=== PATIENT | male | born 1965 | race Caucasian/White ===

== ENCOUNTER → 2020-11-14 10:30 | Outpatient (BNVA) | payer MEDICARE, MEDICAID, SELFPAY | PROVIDERS: PCP Nurse Practitioner Family; Visit Provider Nurse Practitioner | DX: Z13.89 Encounter for screening for other disorder (principal) | CPT/HCPCS: 99212 ==

== ENCOUNTER 2021-05-15 19:01 | Emergency (ER) | payer MEDICARE, MEDICAID, SELFPAY ==
--- NOTE | ~2021-05-15 | XR_ITS ---
EXAMINATION: XR SHOULDER, RIGHT CLINICAL INFORMATION: Right shoulder pain status post fall COMPARISON: None TECHNIQUE: Three views of the right shoulder. FINDINGS: There is a fracture of the humeral neck with impaction and varus angulation of the distal fracture fragment. The glenohumeral joint appears intact although slightly widened possibly secondary to hemarthrosis. No other acute fractures are seen. Old healed right rib fractures are present. XR/XR shoulder RT min 2V IMPRESSION: Acute fracture right humeral neck.
[2021-05-15 19:12] VITALS: BP 150/65; PULSE 85; RESP 20; TEMP 36.9; O2SAT 97; BMI 23.5
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
[2021-05-15] MEDS: Morphine Sulfate 4 MG/ML CARTRIDGE IM (21:18)
[2021-05-15] MEDS: Acetaminophen 325 MG TABLET 975 MG PO (21:19)
[2021-05-15 21:22] VITALS: BP 150/86; PULSE 92; RESP 17; TEMP 36.8; O2SAT 98
[2021-05-15] MEDS: Bacitracin Oint 0.9 GM PACKET 1 APPL TOPICAL (21:27)
== END 2021-05-15 21:59 | disposition home or self-care (01) ==
PROVIDERS: Emergency Provider Emergency Medicine Emergency Medical Services; PCP Family Medicine
DX: S42.211A Unspecified displaced fracture of surgical neck of right humerus, initial encounter for closed fracture (principal); S00.81XA Abrasion of other part of head, initial encounter; S80.211A Abrasion, right knee, initial encounter; V18.0XXA Pedal cycle driver injured in noncollision transport accident in nontraffic accident, initial encounter; Y93.55 Activity, bike riding; Y92.414 Local residential or business street as the place of occurrence of the external cause; Y99.9 Unspecified external cause status
CPT/HCPCS: 73030; 96372; 99284; J2270

== ENCOUNTER → 2021-05-17 14:21 | Outpatient (BNVA) | payer MEDICARE, MEDICAID, SELFPAY | PROVIDERS: Visit Provider Physician Assistant | DX: S42.201A Unspecified fracture of upper end of right humerus, initial encounter for closed fracture (principal) | CPT/HCPCS: 99202 ==

== ENCOUNTER 2021-06-14 09:13 | Outpatient (REF) | payer MEDICARE, MEDICAID, SELFPAY ==
--- NOTE | ~2021-06-14 | XR_ITS ---
EXAMINATION: XR SHOULDER, RIGHT CLINICAL INFORMATION: Right shoulder pain. COMPARISON: 05/15/2021 TECHNIQUE: Two views of the right shoulder. FINDINGS: There is again noted to be an essentially nondisplaced but angulated fracture of the surgical neck of the right proximal humerus. There is no change in alignment. There has been some periosteal new bone formation and increased sclerosis about the fracture site. No dislocation. XR/XR shoulder RT min 2V IMPRESSION: No change in alignment with evidence of some healing involving the right proximal humeral fracture.
== END 2021-06-14 09:14 | disposition home or self-care (01) ==
LOC: HO.HOSX 09:13
PROVIDERS: Visit Provider Physician Assistant
DX: S42.201D Unspecified fracture of upper end of right humerus, subsequent encounter for fracture with routine healing (principal)
CPT/HCPCS: 73030; 99212

== ENCOUNTER 2021-07-26 07:30 | Outpatient (REF) | payer MEDICARE, MEDICAID, SELFPAY ==
--- NOTE | ~2021-07-26 | XR_ITS ---
EXAMINATION: XR SHOULDER, RIGHT CLINICAL INFORMATION: Right shoulder pain COMPARISON: 05/15/2021 and 06/14/2021 TECHNIQUE: Two views of the right shoulder. FINDINGS: Again noted is a mildly impacted, transverse fracture through the region of the surgical neck of the humerus. There is no visible fracture lucency centrally, either from the impaction or partial healing. Persistent fracture lucency is observed in cortical bone medially and laterally. There is mild anterosuperolateral displacement of the humeral shaft fragment and mild anterolateral fracture apex angulation, unchanged. The humeral head remains well-positioned over the glenoid. The glenohumeral joint space is maintained. The right clavicle and acromioclavicular joint are unremarkable. No calcium deposition within rotator cuff tendons. The visualized right lung is normal. XR/XR shoulder RT min 2V IMPRESSION: There appears to be a healing, impacted fracture of the surgical neck of the humerus. The bone fragments are in stable position compared to 05/15/2021.
== END 2021-07-26 07:31 | disposition home or self-care (01) ==
LOC: HO.HOSX 07:30
PROVIDERS: Visit Provider Physician Assistant
DX: S42.201D Unspecified fracture of upper end of right humerus, subsequent encounter for fracture with routine healing (principal)
CPT/HCPCS: 73030; 99212

== ENCOUNTER 2021-09-04 10:00 | Outpatient (RCR) | payer MEDICARE, MEDICAID, SELFPAY ==
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
--- NOTE | 2021-09-13 09:13 | MHC.PT.DC ---
[facility] [place] Office [place] Office [place] Office [address] Nasra Lilly [address] [phone] F: [phone] F: [phone] F: [phone] F: [phone] Physical Therapy Discharge Report Diagnosis: FX PROX RIGHT HUMERUS Date of Surgery: Date of Evaluation: 08/07/21 Date of Discharge: 09/13/21 Treatments to Date: 8 Cancellations to Date: 0 No Shows to Date: 2 Discharge Status: Improved Function Independent with HEP Patient Elected to Stop Discharge Summary: Pt DENIES Rt SH / HUMERAL PAIN, HE NOTES HE HAS BEEN ABLE TO RESUME REG ADLS, WITH SOME DIFFICULTY W OVERHEAD TASKS- HE IS INDEP AND COMPLIANT W HEP TO ADDRESS PROGRESSIVE STRENGTHENING- Pt HAD ORTHO F/U AND DISCHARGED HIMSELF FROM PT AT THIS TIME Electronically signed by: Twila Peres,PT Please sign and return to therapist. Thank you for your referral.
== END 2021-09-13 09:13 | disposition home or self-care (01) ==
LOC: HO.PT 10:00
PROVIDERS: Visit Provider Physician Assistant
DX: S42.201D Unspecified fracture of upper end of right humerus, subsequent encounter for fracture with routine healing (principal)
CPT/HCPCS: 97110; 97140; 97162

== ENCOUNTER 2021-09-11 12:30 | Outpatient (REF) | payer MEDICARE, MEDICAID, SELFPAY ==
--- NOTE | ~2021-09-11 | XR_ITS ---
EXAMINATION: XR SHOULDER, RIGHT CLINICAL INFORMATION: Pain in right shoulder COMPARISON: Right shoulder 07/26/2021. 06/14/2021, 05/15/2021 TECHNIQUE: Four views of the right shoulder. FINDINGS: Healed fracture of the proximal shaft of the humerus with residual deformity at the humeral neck. There is no acute fracture. No dislocation. No focal bone lesion or abnormal periosteal reaction. The glenohumeral joint is normal. The acromioclavicular joint is normal. There is no soft tissue calcification. XR/XR shoulder RT min 2V IMPRESSION: Healed fracture proximal humerus with residual deformity. No acute abnormality of the shoulder.
== END 2021-09-11 12:31 | disposition home or self-care (01) ==
LOC: HO.HOSX 12:30
PROVIDERS: Visit Provider Physician Assistant
DX: S42.201D Unspecified fracture of upper end of right humerus, subsequent encounter for fracture with routine healing (principal)
CPT/HCPCS: 73030; 99212

== ENCOUNTER → 2022-01-14 11:12 | Outpatient (REF) | payer MEDICARE, MEDICAID, SELFPAY ==
--- NOTE | 2022-01-14 11:16 | CA_ITS ---
Transthoracic Echocardiogram Patient (Last, First, Middle): Surinder Ahn, Gender: Male Date of : 1965 Age: 56 Procedure Date: 01/14/2022 Procedure Type: Transthoracic Echocardiogram Location: OP Height: 152.4 cm Weight: 49.02 kg BSA: 1.44 m2 Heart Rate: bpm BP: 138 / 82 mmHg New Car Inspector: GHANSHYAM Referring MD: Tatianna Montero Cell Biology Scientist: Vijay Brownlee MD Symptoms: I34.9 NON RHEU MITRAL VALVE DISORDER Study Quality: Fair ECG Rhythm: Sinus Conclusions: - 1. Low normal LV ejection fraction 50-55% with impaired relaxation filling pattern 2. Mild aortic stenosis and mild aortic regurgitation 3. Thickened mitral valve without significant stenosis 4. No gross pericardial effusion Findings Left Ventricle Normal left ventricular cavity size. There is normal left ventricular wall thickness. The left ventricular systolic function is low normal. The visually estimated ejection fraction is between 50-55%. Spectral Doppler is indicative of an impaired relaxation filling pattern. E/E prime ratio is between 8 and 15 consistent with indeterminate filling pressures. Right Ventricle Normal right ventricular cavity size and systolic function. Atria The left atrium is normal in size. There is no evidence of interatrial shunt. The right atrium is normal in size. Aortic Valve There is mild calcification of the aortic valve. There is mild aortic valve stenosis. The peak aortic velocity is 2.06 m/s with a calculated peak gradient of 17 mmHg. The aortic valve area is 1.90 cm2. There is mild aortic valve regurgitation. Mitral Valve There is mild anterior and moderate posterior mitral leaflet thickening. There is mild mitral annular calcification. There is trace mitral valve regurgitation. There is no mitral valve stenosis. Pulmonic Valve The pulmonic valve was not well visualized. Tricuspid Valve Likely normal tricuspid valve structure and function. Tricuspid regurgitation envelope is inadequate for calculation of right ventricular systolic pressure. Great Vessels All visible segments of the aorta are normal in size. The pulmonary artery was not well visualized. Venous The inferior vena cava is normal in size. Pericardium/Pleural There is no evidence of pericardial effusion. Prior Study Comparison No significant change compared to prior study dated: 12/28/2017. Measurements M-Mode Liner Measurements Normals - Women/Men LVIDd: 4.96 3.9-5.3/4.2-5.9 cm LVIDd Index: 3.44 1.9-3.2 cm/m2 LVIDs: 3.62 2.0-3.8 cm M-Mode Volumes LV EDV: 116.00 LV ESV: 55.20 2D Linear Measurements IVSd: 1.16 0.6-0.9/0.6-1.0 cm LVIDd: 5.11 3.9-5.3/4.2-5.9 cm LVIDd Index: 3.55 2.4-3.2/2.2-3.1 cm/m2 LVIDs: 3.78 2.0-3.6 cm LVPWd: 0.97 0.7-1.1 cm LA Diam: 3.10 2.7-3.8/3.0-4.0 cm LAIDs Index: 2.15 1.5-2.3 cm/m2 LV Mass: 255.75 67-162/88-224 g LV Mass Index: 177.60 43-95/49-115 g/m2 LVOT Diam: 1.90 3.0+(-)1.3 cm 2D Systolic Function EF 4C: 52.50 >55% M-Mode Systolic Function FS: 27.00 27-47/25-43% LVEF: 52.40 >55% Mitral Valve MV Pk E: 1.06 MV PK A: 1.47 MV Decel Time: 161.00 E/A: 0.70 E'Lateral: 6.53 E'Medial: 4.57 E/E' Med: 23.20 E/E' Lat: 16.20 PHT: 47.00 MVA PHT: 4.68 Decel [place]: 6.61 Aortic Valve AoV Pk Jeremy: 2.06 AoV Pk Grad: 17.00 BAILEY Cont.VTI: 1.90 AI Pk Jeremy: 3.31 AI [place]: 1.75 LVOT LVOT Pk Jeremy: 1.18 LVOT Mn Jeremy: 1.00 LVOT VTI: 0.29 LVOT Pk Grad: 6.00 LVOT Mn Grad: 4.00 LVOT Diam: 1.90 LVOT Area: 2.84 Diastolic Function MV Pk E: 1.06 MV Pk A: 1.47 E/A: 0.70 E'Medial: 4.57 E/E' Med: 23.20 E' Laterial: 6.53 E/E' Lat: 16.20 Right Ventricle TAPSE (mm): 2.17 TVS' Jeremy: 12.90 Tricuspid Valve RA Press: 3.00 Great Vessels Aorta Sinus of Valsalva: 3.54 2.0-3.5 cm Ao Asc: 3.70 2.1-3.4 cm Ao Arch: 3.20 Updated in Other Vendor System with Status of Final Vijay Brownlee MD electronically signed on 01/14/2022 6:08:54 PM with status of Final
== END ==
LOC: HO.CARD 11:12
PROVIDERS: PCP Nurse Practitioner Family; Visit Provider Nurse Practitioner Family
DX: I34.9 Nonrheumatic mitral valve disorder, unspecified (principal)
CPT/HCPCS: 93306

== ENCOUNTER 2023-11-04 13:35 | Outpatient (REF) | payer MEDICARE, MEDICAID, SELFPAY | END 2023-11-04 13:36 | disposition home or self-care (01) | LOC: HO.HHCLNP 13:35 | PROVIDERS: Visit Provider Registered Nurse | DX: R39.9 Unspecified symptoms and signs involving the genitourinary system (principal) | CPT/HCPCS: 87086 ==

== ENCOUNTER 2023-11-18 10:41 | Outpatient (AMB) | payer MEDICARE, MEDICAID, SELFPAY ==
--- NOTE | 2023-11-18 10:53 | MHC.OFFVIS ---
Intake Vital Signs 11/18/23 11:06 Weight 130 lb BP 127/76 Blood Pressure Location Rt brachial Position Sitting Pulse 107 H Intake Visit Reasons: recall colonoscopy screening Intake Note: This patient presents for a recall colonoscopy screening. Pt c/o; reports hemorrhoids, reports constipation, reports abdominal and back pain when constipated. 02/08/2014 colonoscopy Senior Communications Specialist Required: Yes Senior Communications Specialist Language: French Cord Binder Name: Caryn Information Interpreted: non-clinical & clinical Accompanied by: Self / Same As Patient Allergies No Known Allergies Allergy (Mild, Verified 11/18/23 11:08) NKA Medication List - Last Reconciled 11/18/23 by Seferino Shah MD aspirin 1 tab PO DAILY atorvastatin 1 tab PO DAILY cyanocobalamin (vitamin B-12) (Vitamin B-12) 1,000 mcg PO DAILY fenofibrate micronized 1 cap PO DAILY ferrous gluconate 1 tab PO DAILY fluticasone propionate 50 mcg/actuation 1 spray intranasal DAILY hydrocortisone 2.5% 1 appl CO TID levothyroxine 1 tab PO DAILY loratadine 1 tab PO DAILY HPI recall colonoscopy screening HPI Details 58-year-old male referred for screening colonoscopy. Review of his records show that his last colonoscopy was in 2013. This was unremarkable at that time. He denies GI complaints. He denies a strong family history of colon cancer. [facility] Medical History (Updated 11/18/23 @ 11:10 by Seferino Shah MD) Colon cancer screening Anemia Hyperlipemia Surgical History Hx of knee surgery Hx of removal of cyst Hx of eye surgery Hx of cholecystectomy Hx of endoscopy Hx of colonoscopy Family History Father Throat cancer Mother Alcoholism Maternal Grandmother Bone cancer Sister Diabetes Brother Diabetes Family/Other Family history of diabetes mellitus Social History Household Members: Family Household Members Other:: sister Housing: House Alcohol intake: former Patient Tobacco Use Status: Never used Tobacco service: No Current occupational status: disabled Current occupation: lt handed Review of Systems Const Denies chills and Denies fever(s) Card Denies chest pain, Denies dyspnea and Denies dyspnea on exertion Resp Denies cough, Denies dyspnea and Denies dyspnea on exertion GI Denies hematochezia, Denies change in bowel habits and Reports constipation Denies hematuria and Denies difficulty urinating Musc Denies back pain and Denies limited range of motion Neuro Denies focal weakness and Denies convulsions Psych Denies depression and Denies mood swings Physical Exam Vital Signs: Last Vital Signs Pulse 107 H 11/18/23 11:06 BP 127/76 11/18/23 11:06 Const General: comfortable and no acute distress Orientation/consciousness: patient oriented x3 Neck Neck: Yes no lymphadenopathy Resp Auscultation: clear to auscultation bilaterally Cardio Rhythm: regular rhythm GI Palpation (GI): Soft to palpation, nontender and no guarding Neuro General: patient oriented x3 Assessment & Plan Assessment & Plan (1) Colon cancer screening: Comment: 2013 normal scope - Pablo Code(s): Z12.11 - Encounter for screening for malignant neoplasm of colon Plan: I reviewed with him the technique of colonoscopy for screening. I discussed the risks including but not limited to bleeding and perforation, as well as the benefits and alternatives. He understands and agrees to proceed. Coding Level of Care Code New Pt Level 3 (04587) Diagnoses Colon cancer screening Z12.11
[2023-11-18 11:06] VITALS: BP 127/76; PULSE 107
== END 2023-11-18 11:17 | disposition home or self-care (01) ==
PROVIDERS: PCP Nurse Practitioner Family; Visit Provider Surgery
DX: Z12.11 Encounter for screening for malignant neoplasm of colon (principal)
CPT/HCPCS: 99203

== ENCOUNTER → 2023-11-18 10:41 | Outpatient (BNVA) | payer MEDICARE, MEDICAID, SELFPAY | PROVIDERS: PCP Nurse Practitioner Family; Visit Provider Surgery | DX: Z12.11 Encounter for screening for malignant neoplasm of colon (principal) | CPT/HCPCS: 99202 ==

== ENCOUNTER 2023-11-20 09:06 | Outpatient (REF) | payer MEDICARE, MEDICAID, SELFPAY ==
[2023-11-20 12:26] LABS: TSH reflex Free T4 3.71 uIU/mL (0.32-4.0)
== END 2023-11-20 09:07 | disposition home or self-care (01) ==
LOC: HO.HHCL 09:06
PROVIDERS: Visit Provider Registered Nurse
DX: Z12.5 Encounter for screening for malignant neoplasm of prostate (principal); R39.9 Unspecified symptoms and signs involving the genitourinary system; R35.0 Frequency of micturition; E03.9 Hypothyroidism, unspecified
CPT/HCPCS: 36415; 84153; 84443; 87086

== ENCOUNTER 2023-12-22 05:48 | Day surgery (SDC) | payer MEDICARE, MEDICAID, SELFPAY ==
[2023-12-18 16:26] VITALS: BMI 23.2
[2023-12-22 06:58] VITALS: BP 154/72; PULSE 88; RESP 16; TEMP 37; O2SAT 97; BMI 22.7
--- NOTE | 2023-12-22 07:11 | P.CONAN_ITS ---
HPI - Anesthesia Eval Consult details Narrative: Screening Colonoscopy [facility] Active Problems Active Problems: All Active Problems (Updated 12/18/23 @ 16:29 by Maribel Gramajo RN) Fracture of proximal end of right humerus with routine healing (Acute) Anemia (Chronic) Closed fracture of right proximal humerus (Acute) Family history of colonic polyps (Acute) Hemorrhoids (Acute) Constipation (Acute) Colon cancer screening (Acute) Past Medical History Medical History Hypothyroidism Allergic rhinitis Constipation Mitral valve disorder Anemia Hyperlipemia Colon cancer screening Family History Family History Father Throat cancer Mother Alcoholism Maternal Grandmother Bone cancer Sister Diabetes Brother Diabetes Family/Other Family history of diabetes mellitus Family history of problems with anesthesia: No Surgical History Surgical History Hx of knee surgery Hx of removal of cyst Hx of eye surgery Hx of cholecystectomy Hx of endoscopy Hx of colonoscopy History of Problems with Anesthesia: No Social History Social History Household Members: Family Household Members Other:: sister Housing: House Alcohol intake: former Patient Tobacco Use Status: Never used Tobacco Use of substances other than those prescribed or required for medical reasons: No Are you DNR?: No Advance Directives: No Advance Directives Information Provided: Yes service: No Current occupational status: disabled Current occupation: lt handed Meds Allergies Allergy/AdvReac Type Severity Reaction Status Date / Time No Known Allergies Allergy Mild NKA Verified 12/22/23 06:53 Home Medications Medication Instructions Recorded Confirmed Last Taken Type aspirin 81 mg tablet,delayed 1 tab PO DAILY 06/06/21 12/22/23 12/20/23 History release atorvastatin 20 mg tablet 1 tab PO DAILY 06/06/21 12/22/23 Unknown History ferrous gluconate 324 mg (37.5 mg 1 tab PO DAILY 06/06/21 12/22/23 12/20/23 History iron) tablet fenofibrate micronized 200 mg 1 cap PO DAILY 08/06/21 12/22/23 Unknown History capsule fluticasone propionate 50 1 spray intranasal DAILY 08/06/21 12/22/23 Unknown History mcg/actuation nasal spray,suspension levothyroxine 88 mcg tablet 1 tab PO DAILY 08/06/21 12/22/23 Unknown History loratadine 10 mg tablet 1 tab PO DAILY 08/06/21 12/22/23 Unknown History Exam Height,Weight and Vital Signs: Height 5 ft 3 in Weight 58.06 kg Last Vital Signs Temp 98.6 F 12/22/23 06:58 Pulse 88 12/22/23 06:58 Resp 16 12/22/23 06:58 BP 154/72 H 12/22/23 06:58 Pulse Ox 97 12/22/23 06:58 O2 Del Method Room Air 12/22/23 06:58 Airway Mallampati Class: II TM Dist: >3cm Neck ROM: Full Loose/Missing/Broken Teeth: Yes (many missing upper and lower globally) Heart: [id number]+[id number] Lungs: cta b/l Assessment and Plan Assessment Anesthesia Assessment: Anesthesia Plan Discussed, Smoking Cess. Discussed and Chart Reviewed Final Anesthetic Review Family History of Problems with Anesthesia: No History of Problems with Anesthesia: No NPO: Yes ASA Class: II Final Preanesthetic Review: No Changes in Pt Med Stat, Meds/Allgs Chart Reviewed, Consent Obtained/Reviewed and Anes Risks/Benef Reviewed Patient Risk: Intermediate Procedure Risk: Low Assessment/Block/Sedation in SS: Assess/Block/Sedation-SS Anesthetic Plan Anesthetic Plan: MAC: Disposition: Standard PACU
--- NOTE | 2023-12-22 07:25 | MHC.SHP ---
Pre-Procedural Eval Section A - 24 Hr Update-Section A only Date of Service: 12/22/23 The patient is an INPATIENT: No Changes since office visit: Yes Cold of Flu in the past 2 weeks, Yes New Medical Problems, Yes Changes in Medication and Yes Patient answered all questions The patient has been examined within 24 hours of the surgical procedure. The History & Physical has been completed within 30 days and I have reviewed it.: Yes Section B - Complete if H&P > 30 days Chief Complaint: screening Allergies: Allergies Allergy/AdvReac Type Severity Reaction Status Date / Time No Known Allergies Allergy Mild NKA Verified 12/22/23 06:53 Plan I have reviewed the history and physical and performed a pertinent physical examination on my patient. No changes have occurred unless specified. Time Spent With Patient Time: Total time managing care of this patient today ____ minutes.
[2023-12-22 08:00] VITALS: BP 105/62; PULSE 90; RESP 16; TEMP 37.2; O2SAT 99
--- NOTE | 2023-12-22 08:00 | W.PM.OPN ---
Operative Note Operative Note Date of Service: 12/22/23 Narrative: Preop diagnosis: Colon cancer screening Postop diagnosis: Normal colonoscopy findings Procedure: Colonoscopy Surgeon: Seferino Shah MD The patient is a 58-year-old male here for screening colonoscopy. He understood the technique of the procedure as well as the risks, benefits, and alternatives. The patient was brought to the operating room and placed in left lateral decubitus position under monitored anesthesia care. A surgical time-out was done. A full digital rectal exam was done and this did not reveal any significant anal lesions except for prominent hemorrhoids. The tip of the Olympus colonoscope was gently introduced through the anal orifice advanced with insufflation all the way to the cecum. The cecum was intubated. The cecum was identified by visualization of the ileocecal valve as well as the appendiceal orifice. The cecal mucosa was unremarkable. The scope was gradually withdrawn with careful examination of the entire colonic mucosa being done with scope withdrawal. The patient had adequate bowel prep so it was unlikely that any lesion may have been missed. The rectum was reached and there were no lesions seen. The anal canal was unremarkable except for some prominent internal external hemorrhoids.. The scope was then withdrawn completely with desufflation. The patient tolerated the procedure well. There were no immediate complications. He is at average risk for colon cancer so his next colonoscopy for screening may be in the next 10 years.
[2023-12-22 08:16] VITALS: BP 137/85; PULSE 79; RESP 18; TEMP 36.4; O2SAT 96
== END 2023-12-22 08:59 | disposition home or self-care (01) ==
PROVIDERS: PCP Registered Nurse; Visit Provider Surgery
PROC: 0DBE8ZZ Excision of Large Intestine, Via Natural or Artificial Opening Endoscopic (ICD-10-PCS; CPT G0121; principal; 2023-12-22 07:30)
DX: Z12.11 Encounter for screening for malignant neoplasm of colon (principal); K64.8 Other hemorrhoids; K64.4 Residual hemorrhoidal skin tags; D64.9 Anemia, unspecified; E78.5 Hyperlipidemia, unspecified; E03.9 Hypothyroidism, unspecified; Z79.51 Long term (current) use of inhaled steroids; Z79.82 Long term (current) use of aspirin; Z79.899 Other long term (current) drug therapy; J30.9 Allergic rhinitis, unspecified
CPT/HCPCS: G0121; J2371; J2704

== ENCOUNTER → 2023-12-22 05:48 | Outpatient (BNV) | payer MEDICARE, MEDICAID, SELFPAY | PROVIDERS: PCP Registered Nurse; Visit Provider Surgery | DX: Z12.11 Encounter for screening for malignant neoplasm of colon (principal) | CPT/HCPCS: G0121 ==

== ENCOUNTER 2024-01-04 10:28 | Outpatient (AMB) | payer MEDICARE, MEDICAID, SELFPAY ==
--- NOTE | 2024-01-04 10:56 | A.OFFVIS_ITS ---
Intake Intake Visit Reasons: lower urinary tract symptoms Intake Note: New Patient presents for initial visit for incomplete bladder emptying/LUTS Urology Medications: none Blood Thinner: aspirin PVR: 56ml's Floor Representative Required: Yes Floor Representative Name: JEFF MARINRELL Accompanied by: Self / Same As Patient Allergies No Known Allergies Allergy (Mild, Verified 01/04/24 11:28) NKA Medication List - Last Reconciled 01/04/24 by MEHRDAD García-NIRMAL aspirin 1 tab PO DAILY atorvastatin 1 tab PO DAILY cyanocobalamin (vitamin B-12) (Vitamin B-12) 1,000 mcg PO DAILY fenofibrate micronized 1 cap PO DAILY ferrous gluconate 1 tab PO DAILY fluticasone propionate 50 mcg/actuation 1 spray intranasal DAILY hydrocortisone 2.5% 1 appl LA TID levothyroxine 1 tab PO DAILY loratadine 1 tab PO DAILY tamsulosin 0.4 mg PO BEDTIME 30 weeks HPI HPI Comments History of Present Illness Details Surinder is a Vietnamese-speaking 58-year-old male patient of Dr. Montero. He has a past medical history of hypothyroidism, allergic rhinitis, constipation, mitral valve disorder, anemia, and hyperlipidemia. He presents to the office today as a new patient for nocturia. In discussion with the patient today he reports noting episodes of nocturia 3-4 times per night. He reports the symptoms have been present for 6 months to 1 year. He otherwise denies any bothersome urinary issues. He denies urinary urgency, urinary frequency, incontinence, hematuria, dysuria, foul smelling urine, changes to urinary stream, flank pain, fever, and or chills. In review of patient's chart it appears PSA12/05--1.10. Discussed at length potential causes for nocturia. Patient does report a history of snoring and feeling fatigued upon wakening. Discussed further workup with sleep study as well as retroperitoneal ultrasound for further assessment evaluation. In office urinalysis results reviewed with the patient today. PVR 56 mLs. He otherwise offers no other issues or concerns at this time. [facility] Medical History Hypothyroidism Allergic rhinitis Constipation Mitral valve disorder Anemia Hyperlipemia Colon cancer screening Surgical History Hx of knee surgery Hx of removal of cyst Hx of eye surgery Hx of cholecystectomy Hx of endoscopy Hx of colonoscopy Family History Father Throat cancer Mother Alcoholism Maternal Grandmother Bone cancer Sister Diabetes Brother Diabetes Family/Other Family history of diabetes mellitus Social History Household Members: Family Household Members Other:: sister Housing: House Alcohol intake: former Patient Tobacco Use Status: Never used Tobacco service: No Current occupational status: disabled Current occupation: lt handed Review of Systems Const Reports no additional complaints Eyes Reports no additional complaints ENT Reports no additional complaints Card Reports as per HPI Resp Reports no additional complaints GI Reports no additional complaints Reports as per HPI Musc Reports no additional complaints Neuro Reports no additional complaints Psych Reports no additional complaints Endo Reports as per HPI Froilan/Lymph Reports no additional complaints Aller/Immun Reports no additional complaints Physical Exam Const General: cooperative, healthy appearing, comfortable, no acute distress, well developed, alert and awake Orientation/consciousness: patient oriented x3 Limitations: no limitations HEENT Head: Yes normal to inspection, Yes normocephalic and Yes atraumatic Ears: hearing grossly normal bilaterally Eyes General: appearance normal, both eyes and all related structures Neck Neck: Yes normal visual inspection and Yes trachea midline Chest Chest palpation & inspection: normal inspection of the chest Resp Effort & Inspection: normal respiratory effort and able to speak in complete sentences Cardio Rate: regular rate GI Inspection: Yes normal to inspection General: Yes no CVA tenderness Back/Spine/Pelvis Back: no CVA tenderness Skin General skin exam: no rashes or lesions noted Neuro General: patient oriented x3 Extrem General: Yes normal to inspection Psych Appearance: grossly normal and well kempt Mental Status: mental status grossly normal Speech and movement: Normal speech and movement present and Clear speech present Affect: normal affect Attitude: cooperative Thought process: Normal thought process present Thought content: Normal thought content present Insight: Fair insight present (Psych) Judgement: Fair judgement present (Psych) Results AMB Urinalysis, Automated UA Leukoctes 0 Isaias/uL Last Edit by [email or web address] on 01/04/24 11:17 UA Nitrite Negative Last Edit by [email or web address] on 01/04/24 11:17 UA Urobilinogen 0.2 mg/dL Last Edit by [email or web address] on 01/04/24 11:17 UA Protein 0 mg/dL Last Edit by Liudmila Cuevas on 01/04/24 11:17 UA pH 5.5 Last Edit by Liudmila Cuevas on 01/04/24 11:17 UA Blood 0 Paul/uL Last Edit by Liudmila Cuevas on 01/04/24 11:17 UA Specific Blair 1.025 Last Edit by Liudmila Cuevas on 01/04/24 11:17 UA Ketone Negative Last Edit by Liudmila Cuevas on 01/04/24 11:17 UA Bilirubin 0 mg/dL Last Edit by Liudmila Cuevas on 01/04/24 11:17 UA Glucose 0 mg/dL Last Edit by Liudmila Cuevas on 01/04/24 11:17 Results Reviewed Results Reviewed: Laboratory Last Values Urine pH (Auto) 5.5 01/04/24 11:14 Specific Blair (Auto) 1.025 01/04/24 11:14 Urine Protein (Auto) 0 mg/dL 01/04/24 11:14 Glucose (UA)(Auto) 0 mg/dL 01/04/24 11:14 Urine Ketones (Auto) Negative 01/04/24 11:14 Urine Blood (Auto) 0 Paul/uL 01/04/24 11:14 Urine Nitrite (Auto) Negative 01/04/24 11:14 Urine Bilirubin (Auto) 0 mg/dL 01/04/24 11:14 Urine Urobilinogen (Auto) 0.2 mg/dL 01/04/24 11:14 Leukocyte Esterase (Auto) 0 Isaias/uL 01/04/24 11:14 Assessment & Plan Assessment & Plan (1) Nocturia: Code(s): R35.1 - Nocturia (2) Fatigue: Code(s): R53.83 - Other fatigue Plan In office urinalysis results reviewed with the patient today; as noted above. PVR 56 mL. Discussed at length potential causes for nocturia. Will obtain sleep study for further assessment evaluation. Will obtain retroperitoneal ultrasound for further assessment evaluation. Start Flomax as discussed and prescribed. Discussed lifestyle modifications to assist with nocturia Follow-up in 2-3 months with imaging to be completed prior; or sooner with any issues, concerns, and or questions. Orders: Orders RT home sleep study Today R35.1 - Nocturia, R53.83 - Other fatigue AMB Urinalysis Automated Today Z13.9 - Encounter for screening, unspecified US retroperitoneal comp Today R35.1 - Nocturia Medications: New tamsulosin 0.4 mg PO BEDTIME 30 weeks 30 caps 2RF R35.1 - Nocturia Patient Instructions: The patient had an opportunity to ask questions regarding the treatment plan. All questions were answered. Physical exam, labs, and imaging were discussed and reviewed in detail. As well as risks, benefits, and discussion of treatment choices. No major barriers to understanding were identified. The patient expressed understanding and agreement with the above treatment plan. The patient was made aware they should contact our office by phone for worsening of their current condition, the appearance of new symptoms, or with any questions or concerns. Compliance is encouraged with any medications and follow up testing that is ordered. It is a privilege to be allowed the opportunity to participate in? your urological care.? Again, if you have any questions or concerns If you have any questions or concerns please do not hesitate to contact me. The office is [phone]. This note is constructed using voice recognition software. While every effort has been made to ensure accuracy ski molder errors may have been included. Yours sincerely, ANGELA García Coding Level of Care Code New Pt Level 4 (71140) Diagnoses Nocturia R35.1 Fatigue R53.83
== END 2024-01-04 11:33 | disposition home or self-care (01) ==
PROVIDERS: PCP Nurse Practitioner Family; Visit Provider Nurse Practitioner Family
DX: R35.1 Nocturia (principal); R53.83 Other fatigue; Z13.9 Encounter for screening, unspecified
CPT/HCPCS: 99204

== ENCOUNTER → 2024-01-04 10:28 | Outpatient (BNVA) | payer MEDICARE, MEDICAID, SELFPAY | PROVIDERS: PCP Nurse Practitioner Family; Visit Provider Nurse Practitioner Family | DX: R35.1 Nocturia (principal); R53.83 Other fatigue | CPT/HCPCS: 81003; 99202 ==

== ENCOUNTER 2025-09-04 08:14 | Outpatient (REF) | payer MEDICARE, MEDICAID, SELFPAY ==
--- OUTSIDE RECORDS SUMMARY | 2025-09-04 08:23 | XMS_ITS | Encounter Summary ---
Author Organization [employer] Address [address] [facility] [address] [place] [address] Care Team Providers Care Speech Language Pathologist Assistant Name Role Phone Ginny Moya Primary Care Provider [phone] Reason for Visit * Reason Comments Med Refill Encounter Details Date Type Department Care Team ([facility] st Contact Info) Description 01/30/2023 Refill [facility] [address] [place], [place] [id number] Susana Rg FNP Iron deficiency anemia, unspecified iron deficiency anemia type Social History Tobacco Use Types Packs/Day Years Used Date Smoking Tobacco: Never Assessed Sex and Gender Information Value Date Recorded Sex Assigned at Male 08/11/2022 10:14 AM EDT Legal Sex Male 10:14 AM EDT Gender Identity Male 08/11/2022 10:14 AM EDT Sexual Orientation Straight 08/24/2025 9: 25 AM EST documented as of this encounter Plan of Treatment Not on file documented as of this encounter Visit Diagnoses Diagnosis Iron deficiency anemia, unspecified iron deficiency anemia type documented in this encounter Care Teams Speech Language Pathologist Assistant Relationship Specialty Start Date End Date Ginny Moya FNP [address] [place] [address] PCP - General Family Medicine 03/24/22 documented as of this encounter
--- OUTSIDE RECORDS SUMMARY | 2025-09-04 08:23 | XMS_ITS | Encounter Summary ---
Author Organization [employer] Address [address] [facility] [address] [place] [address] Care Team Providers Care Identification Clerk Name Role Phone Ginny Moya Primary Care Provider [phone] Reason for Visit * Reason Comments Med Refill Encounter Details Date Type Department Care Team ([facility] st Contact Info) Description 04/08/2024 Refill [facility] [address] [place] [address] Ginny Moya FNP [address] [place] [address] Iron deficiency anemia, unspecified iron deficiency anemia type Social History Tobacco Use Types Packs/Day Years Used Date Smoking Tobacco: Never Passive Smoke Exposure: Current Smokeless Tobacco: Never Passive Exposure Comments:br other in law Alcohol Use Standard Drinks/Week Comments Never 0 (1 standard drink = 0.6 oz pur e alcohol) Depression Answer Date Recorded Patient Health Questionnaire-9 Score 0 04/02/2023 Housing Stability Answer Date Recorded What is your housing situation today? I have [place] 11/04/[address] you li ve. Do you have problems with any of the following? None of the above 11/04/2023 Food Insecurity Answer Date Recorded Within the past 12 months, y ou worried that your food would run out before you got money to buy more: Never True 08/02/2023 Within the past 12 months,th e food you bought just didn't last and you didn't have enough money to get more: Never True Transportation Answer Date Recorded In the past 12 months, has l ack of transportation kept you from medical appts, meetings, work or from getting things needed for daily living? No 08/02/2023 Utilities Answer Date Recorded In the past 12 months, has t he electric, gas, oil or water company threatened to shut off services in your home? No 08/02/2023 Depression Answer Date Recorded Patient Health Questionnaire-2 Score 0 04/02/2023 Sex and Gender Information Value Date Recorded Sex Assigned at Male 08/11/2022 10:14 AM EDT Legal Sex Male 10:14 AM EDT Gender Identity Male 08/11/2022 10:14 AM EDT Sexual Orientation Straight 08/24/2025 9: 25 AM EST documented as of this encounter Miscellaneous Notes * Telephone Encounter - Leora Thomas RN - 04/11/2024 2:00 PM EDT TC X1 to pt regarding message from PCP. Pt needs to repeat labs prior to sending refill of iron. LVM to return call to nurses. * Telephone Encounter - MEHRDAD Tabor - 04/09/2024 10:23 AM EDT Please call to let pt know that we received refill request for the iron supplements, but before sending in refill, I would like for him to check blood work to determine if iron levels/anemia have improved. Labs placed, please ask for him to come in at his convenience (non-fasting). Thank you! documented in this encounter Plan of Treatment Scheduled Orders Name Type Priority Associated Diagnoses Orde r Schedule CBC auto differential Lab Routine Iron deficiency anemia, unspecified iron deficiency anemia type Expected: 04/09/2024 (Approximate), Expires: 04/09/2025 Iron And Total Iron Binding Capacity Lab Routine Iron deficiency anemia, unspecified iron deficiency anemia type Expected: 04/09/2024, Expires: 04/09/2025 Ferritin Lab Routine Iron deficiency anemia, unspecified iron deficiency anemia type Expected: 04/09/2024, Expires: 04/09/2025 documented as of this encounter Visit Diagnoses Diagnosis Iron deficiency anemia, unspecified iron deficiency anemia type documented in this encounter Additional Health Concerns Assessment Noted Time PHQ-9 Depression Total Score: 0 04/02/20 10:08 AM EDT documented as of this encounter Care Teams Identification Clerk Relationship Specialty Start Date End Date Ginny Moya FNP [address] [place] [id number] PCP - General Family Medicine 03/24/22 documented as of this encounter
--- OUTSIDE RECORDS SUMMARY | 2025-09-04 08:23 | XMS_ITS | Clinical Summary ---
Author Organization [employer] Address [address] [place] [address] 7 [place] [address] Care Team Providers Care Weigher And Crusher Name Role Phone Ginny Moya [facility] Primary Care Provider [phone] Allergies No known active allergies Medications cyanocobalamin (Vitamin B-12) 1000 MCG tablet TOME MALKA TABLETA TODOS LOS D 022 Active Diclofenac Sodium 1 % gel apply 2 gram by topical route up to 4 times every day to the affected area(s) as needed for back pain Active hydrocortisone (Anusol-HC) 2.5 % rectal cream APLIQUE AL EDNA AFECTADA RECTALLY RACHEL VECES AL D A 022 Active Multiple Vitamins-Minerals (Centrum Adults) tablet Take 1 tablet by mouth in the morning. 021 Active lactulose (Chronulac) 10 GM/15ML solutionIndicatio ns:Chronic constipation Take 15 mL (10 g) by mouth if needed each day (Constipation ). 250 mL 2 024 Active fenofibrate micronized (Lofibra) 200 MG capsuleIndication s:Mixed hyperlipidemia TOME MALKA CAPSULA TODOS LOS [place] VAL[place] 90 capsule 3 025 Active aspirin (Aspirin Low Dose) 81 MG EC tabletIndications :Routine health maintenance TAKE 1 TABLET BY MOUTH EVERY DAY 90 tablet 025 Active atorvastatin (Lipitor) 20 MG tablet TAKE 1 TABLET BY MOUTH AT BEDTIME 90 tablet 025 Active levothyroxine (Synthroid, Levoxyl) 88 MCG tablet TAKE 1 TABLET BY MOUTH EVERY DAY 90 tablet 025 Active ferrous gluconate (Fergon) 324 (38 Fe) MG tabletIndications :Iron deficiency anemia, unspecified iron deficiency anemia type TAKE 1 PILL EVERY THURSDAY, THURSDAY, AND THURSDAY. TAKE WITH A FULL GLASS OF WATER OR VIT C CONTAINING JUICE, AND IDEALLY 1 HOUR BEFORE A MEAL OR 2 HOURS AFTER A MEAL 36 tablet 025 Active senna-docusate sodium (Senokot-S) 8.6-50 MG tabletIndications :Chronic constipation Take 1-2 tablets by mouth if needed at bedtime for constipation. 60 tablet 2 025 2025 Active fluticasone (Flonase) 50 MCG/ACT nasal sprayIndications: Acquired hypothyroidism Administer 1-2 sprays into each nostril if needed in the morning and at bedtime for rhinitis or allergies. Shake gently. Before first use, prime pump. After use, clean tip and replace cap. 16 g 3 Active finasteride (Proscar) 5 MG tabletIndications :Lower urinary tract symptoms (LUTS) Take 1 tablet (5 mg) by mouth Once per day. Do not crush, chew, or split. 90 tablet 1 025 2025 Active fluticasone (Flonase) 50 MCG/ACT nasal spray SPRAY 1 SPRAY INTO EACH NOSTRIL TODOS LOS D 022 2024 Discontinued(R eorder (will not trigger notification to Pharmacy)) loratadine (Claritin) 10 MG tablet Take 1 tablet by mouth once a day as needed 021 2024 Discontinued(T herapy completed) polyethylene glycol, PEG, 3350 (Glycolax) 17 GM/SCOOP powder TAKE 1 SCOOP (17G) DISSOLVED IN WATER TWICE A DAY NEEDED 225 g 3 023 2024 Discontinued(T herapy completed) Active Problems Problem Noted Date Diagnosed Date Cardiomyopathy 08/16/2025 Assessment & Plan (08/16/2025 4:36 PM EST): Followed by [facility] - Dr. De La Cruz for cardiomyopathy, aortic insufficiency, mitral valve diagnosis and HLD Echo March 2024 demonstrated EF 45-50%. Stable compared to previous report. Card consult March 2024 -- plan for annual echo and lipids Q6mo Referral to [facility] Cards 08/16/25 Lower urinary tract symptoms (LUTS) 08/16/2025 Assessment & Plan (08/16/2025 4:44 PM EST): - Consult with [facility] Urology - REFERRAL AND INFORMATION AIDE Ju in December 2023 for incomplete bladder emptying/LUTS. Plan for retroperitoneal US and started on Flomax. - Pt reports was unable to tolerate Flomax and not notice improvement, self discontinued - Continues with LUTS and describes straining to void. Plan: check PSA, UA w/ reflex to culture, follow up with Urology, and shared decision making to initiate on finasteride 5mg daily. 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 Evaluated by [facility] Derm team on 04/24/23. No intervention/tx necessary. Healthcare maintenance 04/02/2023 Assessment & Plan (08/16/2025 4:49 PM EST): - Colonoscopy: 12/22/23 ([facility] Dr. Shah). Repeat 10 years - PSA: WNL March 2023. - Optometry: following with [facility], will call to schedule appt - PHQ9 score 0 in March 2023 Due for routine lab work, ordered today. Assessment & Plan (11/08/2023 7:32 PM EST): - Colonoscopy: January 2014, due 2023. Referral to Dr. Shah placed - PSA: WNL March 2023. - Optometry: following with [facility], will call to schedule appt - PHQ9 score 0 in March 2023 Assessment & Plan (04/04/2023 8:12 PM EDT): - Colonoscopy: January 2014, due 2023 - PSA: 1.11 Feb 2021. Repeat ordered March 2023 - Optometry: following with [facility], will call to schedule appt - PHQ9 score 0 in March 2023 Chronic constipation 10/24/2022 Assessment & Plan (08/16/2025 4:37 PM EST): -Previously followed by [facility] GI -Encouraged to continue with physical activity, biking, and diet rich in fiber and water. -Start senna-docusate 8.6-50mg 1-2 tablets nightly PRN -Previous med trials: miralax (not effective) Assessment & Plan (11/08/2023 7:29 PM EST): -Followed by [facility] GI -Encouraged to continue with physical activity, biking, and diet rich in fiber and water. -Cont with lactulose PRN -Start senna-docusate 8.6-50mg 1-2 tablets nightly PRN -Previous med trials: miralax (not effective) Assessment & Plan (04/02/2023 6:52 AM EDT): -Followed by [facility] -Continues with miralax daily, using senna and lactulose PRN -Encouraged to continue with physical activity, biking, and diet rich in fiber and water. Hypercholesterolemia 05/10/2012 Overview (08/16/2025): -Continue with atorvastatin 20mg nightly -Continue fenofibrate 200mg daily Lab Results Component Value Date CHOLESTEROL 151 04/02/2023 LDLCHOL 76 04/02/2023 LDLCHOL 101 (H) 06/26/2022 LDLCHOL 98 02/18/2021 TRIG 145 04/02/2023 HDLCHOL 50 04/02/2023 CHOLHDLRAT 3.0 04/02/2023 Assessment & Plan (08/16/2025 4:36 PM EST): Repeat lipid panel sent Assessment & Plan (04/04/2023 8:10 PM EDT): Repeat lipid panel sent Acquired hypothyroidism 04/09/2012 Assessment & Plan (11/08/2023 7:30 PM EST): -Last TSH of 2.22 (Jun 2022) -Continue levothyroxine 88mcg daily -Repeat TSH ordered Assessment & Plan (04/04/2023 8:09 PM EDT): -Last TSH of 2.22 (Jun 2022) -Continue levothyroxine 88mcg daily Allergic rhinitis 04/09/2012 Anemia 04/09/2012 Overview (08/16/2025): Lab Results Component Value Date HGB 12.8 (L) 04/02/2023 HGB 12.8 (L) 06/26/2022 FERRITIN 220 04/02/2023 Assessment & Plan (08/16/2025 4:42 PM EST): - Currently continues with iron supplementation - Due to repeat CBC and iron labs to determine if additional supplementation still warranted, labs ordered Mitral valve disorder 04/09/2012 Overview (05/17/2025): 03/03/23 - Echo completed, ordered by Dr. De La Cruz Results: There is moderate global hypokinesis of LV contractility. Overall left ventricular systolic function is mild-moderately impaired with an EF between 40-45%. Indeterminate diastolic function. Compared with the findings of the the prior report of 04/09/22, no change. Echo completed 03/22/24 (Dr. De La Cruz). Mild impairment of the LV EF 45-50%. No change compared to previous report 03/03/23. Resolved Problems Problem Noted Date Diagnosed Date Resolved Date Cellulitis and abscess of face 04/09/2012 08/03/2023 Encounters Date Type Department Care Team Description 08/16/2025 10:00 AM EST Office Visit [facility] [address] [place] [phone] Ginny Moya FNP Lower urinary tract symptoms (LUTS) (Primary Dx); Healthcare maintenance; Cardiomyopathy, unspecified type (CMS/HCC) (HCC); Iron deficiency anemia, unspecified iron deficiency anemia type; Mitral valve disorder; Hypercholesterolemia; Encounter for immunization; Chronic constipation; Seasonal allergic rhinitis due to other allergic trigger; Acquired hypothyroidism 08/16/2025 Travel 08/08/2025 Patient Outreach [facility] [address] [place] [phone] Ginny Moya FNP Pre-visit Planning (Pre-visit planning - LVM ) 06/26/2025 Telephone [facility] [address] [place], [place] [phone] Ginny Moya FNP Med Refill from Last 3 Months Immunizations Immunization Administration Dates Next Due Influenza injectable quadriv alent preservative free 08/27/2021,11/22/2020,08/10/2019,10/06 Influenza, IIV3, injectable 07/09/2011, 0 Influenza, Split (incl. garrison fied surface antigen) 08/22/2013,08/02/2012 MMR 11/12/1992 Moderna Covid-19 Vaccine 12+ 03/01/2021 Pfizer Covid-19 Vaccine 12+ 11/04/2023, Pneumococcal Conjugate PCV 20 08/16/2025 Pneumococcal Polysaccharide PPSV23 07/09/2011, Pneumococcal, Unspecified 07/10/2009 TD (adult), 2 Lf tetanus tox oid, preservative free, adsorbed 07/15/2021,07/10/2009,05/10/2004,11/12 Tdap 11/02/2017 Zoster, Recombinant 08/21/2022,12/24/2021 Social History Tobacco Use Types Packs/Day Years Used Date Smoking Tobacco: Never Passive Smoke Exposure: Current Smokeless Tobacco: Never Tobacco Cessation:Counseling Given: Not Answered Passive Exposure Comments:brother in law Alcohol Use Standard Drinks/Week Comments Never 0 (1 standard drink = 0.6 oz pur e alcohol) Depression Answer Date Recorded Patient Health Questionnaire-9 Score 2 08/16/2025 Patient Health Questionnaire-9 Score 2 08/16/2025 Last PHQ-9: Questionnaire Data Not on file 1 10/16/2024 Housing Stability Answer Date Recorded What is your housing situation today? I have [place] 08/16/[address] you li ve. Do you have problems with any of the following? None of the above 08/16/2025 Food Insecurity Answer Date Recorded Within the past 12 months, y ou worried that your food would run out before you got money to buy more: Never True 08/16/2025 Within the past 12 months,th e food you bought just didn't last and you didn't have enough money to get more: Never True 02/2025 Transportation Answer Date Recorded In the past 12 months, has l ack of transportation kept you from medical appts, meetings, work or from getting things needed for daily living? No 08/16/2025 Utilities Answer Date Recorded In the past 12 months, has t he electric, gas, oil or water company threatened to shut off services in your home? No 08/16/2025 Depression Answer Date Recorded Patient Health Questionnaire-2 Score 0 08/16/2025 Internet Access Answer Date Recorded Internet Access Q1 Yes 08/16/2025 Internet Access Q2 Not on file 08/16/2025 Sex and Gender Information Value Date Recorded Sex Assigned at Male 08/11/2022 10:14 AM EDT Legal Sex Male 10:14 AM EDT Gender Identity Male 08/11/2022 10:14 AM EDT Sexual Orientation Straight 08/24/2025 9: 25 AM EST Last Filed Vital Signs Vital Sign Reading Time Taken Comments Blood Pressure 110/70 08/16/2025 10:12 AM EST Pulse 79 08/16/2025 10:12 AM EST Temperature 36.7 C (98.1 F) 08/16/2025 10:12 AM EST Respiratory Rate 14 08/16/2025 10:12 AM EST Oxygen Saturation 96% 08/16/2025 10:12 AM EST Inhaled Oxygen Concentration - - Weight 56 kg (123 lb 8 oz) 08/16/2025 10:[address] Height 160 cm (5' 3 ) 08/16/2025 10:12 AM EST Body Mass Index 21.88 08/16/2025 10:12 AM EST Plan of Treatment Health Maintenance Due Date Last Done Comments CT Colonography 1966 FIT DNA/Cologuard 1966 FIT 1966 FOBT 1966 Sigmoidoscopy 1966 Hepatitis B Vaccines (1 of 3 - 19+ 3-dose series) 1985 RSV Patients and Patients Aged 60 years or older (1 - Risk 50-74 years 1-dose series) 2016 COVID-19 Vaccine ( season) 2025 11/04/2023, 05/16/2022, 10/08/2021, Additional history exists Influenza Vaccine (#1) 2025 , 11/22/2020, 08/10/2019, Additional history exists Alcohol/Substance Use Screening 08/16/2026 08/16/2025 Depression Screening 08/16/2026 08/16/2025, 08/16/20 25 Disability Screening 08/16/2026 08/16/2025 SDOH Screening 08/16/2026 08/16/2025 Tobacco Screening 08/16/2026 08/16/2025 Lipid Panel 04/02/2028 04/02/2023, 06/12, 02/18/2021, Additional history exists DTaP/Tdap/Td Vaccines (3 - Td or Tdap) 07/15/2031 07/15/2021, 11/02/2017, 07/10/2009, Additional history exists Colonoscopy 12/21/2033 12/22/2023, 02/08/2014 Colorectal Cancer Screening 12/21/2033 HIV Screening Completed 06/26/2022 Hepatitis C Screening Completed 06/26/2022 Zoster Vaccines Completed 08/21/2022, 12/24/2021 Pneumococcal Vaccine: 50+ Years Completed 08/16/2025, 07/09/2011, 07/10/2009, Additional history exists HIB Vaccines Aged Out No longer eligi ble based on patient's age to complete this topic HPV Vaccines Aged Out No longer eligi ble based on patient's age to complete this topic Hepatitis A Vaccines Aged Out No long er eligible based on patient's age to complete this topic IPV Vaccines Aged Out No longer eligi ble based on patient's age to complete this topic Meningococcal B Vaccine Aged Out No l onger eligible based on patient's age to complete this topic Meningococcal Vaccine Aged Out No elena brian eligible based on patient's age to complete this topic RSV under 20 months Aged Out No longe r eligible based on patient's age to complete this topic Rotavirus Vaccines Aged Out No longer eligible based on patient's age to complete this topic Procedures Procedure Name Priority Date/Time Associated Diagnosis Comments HM COLONOSCOPY Routine 12/22/2023 LIPID PANEL, STANDARD Routine 04/02/2023 11:07 AM EDT [facility] HISTORICAL HEPATITIS C AB W/REFL TO HCV RNA, QN, PCR Routine 06/26/2022 9:00 AM EDT HIV 1/2 ANTIGEN/ANTIBODY, FOURTH GENERATION W/RFL Routine 06/26/2022 9:00 AM EDT from Last 3 Months or Most Recently Relevant to Health Maintenance Results * Hm Colonoscopy (12/22/2023) Colonoscopy Normal Normal Historical Provider MD HEALTH MAINTENANCE Final Result * Lipid Panel, Standard (04/02/2023 11:07 AM EDT) Pathologist [facility] Cholesterol, Total 151 <200 mg/dL [facility] HDL Cholesterol 50 > OR = 40 mg/dL [facility] [employer] Triglycerides 145 <150 mg/dL [facility] [employer] LDL Cholesterol 76 mg/dL (calc) [facility] [employer] Comment: Reference range: <100 Desirable range <100 mg/dL for primary prevention; <70 mg/dL for patients with CHD or diabetic patients with > or = 2 CHD risk factors. LDL-C is now calculated using the Alphonse-Eller calculation, which is a validated novel method providing better accuracy than the Friedewald equation in the estimation of LDL-C. Alphonse JOHNSON et al. VARGHESE. 2013;310(19): 5911-9901 (http://education.[employer]ck.CREATIV.COM/faq/QPH357) Chol/HDLC Ratio 3.0 <5.0 (calc) [facility] Non-HDL Cholesterol 101 <130 mg/dL (calc) [facility] Comment: For patients with diabetes plus 1 major ASCVD risk factor, treating to a non-HDL-C goal of <100 mg/dL (LDL-C of <70 mg/dL) is considered a therapeutic option. 04/02/2023 11:0 7 AM EDT 04/02/2023 11:07 AM EDT Narrative [facility] - 04/03/2023 3:42 AM EDT FASTING:UNKNOWN FASTING: UNKNOWN Ginny Moya [facility] LAB BLOOD ORDERABLES Final Res ult [facility] [address] [facility], [facility], [place] [address] [facility] [address] [place] [address] * HEPATITIS C AB W/REFL TO HCV RNA, QN, PCR (06/26/2022 9:00 AM EDT) HEPATITIS C ANTIBODY NON-REACT [facility]IN NON-REACT [facility]IN [facility] INDEX 0.11 <1.00 [facility] Comment: HCV antibody was non-reactive. There is no laboratory evidence of HCV infection. In most cases, no further action is required. However, if recent HCV exposure is suspected, a test for HCV RNA (test code 41866) is suggested. For additional information please refer to http://[employer] Inc.Celergo/faq/XNR59p9 (This link is being provided for informational/ educational purposes only.) 06/26/2022 9:00 AM EDT Ginny Moya [employer] HISTORICAL/NON ORDERABLE LABS Final Result [facility] [address] * HIV 1/2 ANTIGEN/ANTIBODY,FOURTH GENERATION W/RFL (06/26/2022 9:00 AM EDT) HIV-1/2 ANTIGEN AND ANTIBODIES, 4TH GENERATION W/ REFLEX NON-REACT PARVIN NON-REACT PARVIN [facility] Comment: HIV-1 antigen and HIV-1/HIV-2 antibodies were not detected. There is no laboratory evidence of HIV infection. PLEASE NOTE: This information has been disclosed to you from records whose confidentiality may be protected by state law. If your state requires such protection, then the state law prohibits you from making any further disclosure of the information without the specific written consent of the person to whom it pertains, or as otherwise permitted by law. A general authorization for the release of medical or other information is NOT sufficient for this purpose. For additional information please refer to http://education.[employer].CREATIV.COM/faq/EUU750 (This link is being provided for informational/ educational purposes only.) The performance of this assay has not been clinically validated in patients less than 2 years old. 06/26/2022 9:00 AM EDT us Ginny Moya [employer] LAB BLOOD ORDERABLES Final Res ult Performing Organization Address City/State/[facility] Co de Phone Number [facility] Critical access hospital [address] from Last 3 Months or Most Recently Relevant to Health Maintenance [place] [address] [place] [address] STANDARD IRA [facility] MEDICARE ADVANTAGE HMO Care Teams Weigher And Crusher Relationship Specialty Start Date End Date Ginny Moya FNP [address] [place] [address] PCP - General Family Medicine 03/24/22
[2025-09-04 11:10] LABS: MANUAL DIFF FLAG NO
[2025-09-04 11:22] LABS: Appearance Urine Clear; Glucose Urine UA Negative (Negative); PH 6.0 (5.0-9.0); Specific Gravity - Urine 1.015 (1.005-1.025); UMIC TRIGGER UACC YES
[2025-09-04 11:25] LABS: Hematocrit 39.5 % (42.0-52.0); Hemoglobin 12.6 g/dl (14.0-18.0); Imm Gran Abs Auto 0.03 X10*3/uL (0.00-0.03); Imm Gran Pct Auto 0.3 % (0.0-0.4); Lymphocytes Absolute Auto 3.0 X10*3/uL (1.2-4.9); Mean Corpuscular HGB Conc 31.9 g/dl (31.0-36.0); Mean Corpuscular Hemoglobin 28.3 pg (27.0-33.0); Mean Corpuscular Volume 88.6 fL (80.0-98.0); NRBC Abs Auto 0.000 X10*3/uL (0.0-0.012); NRBC Pct Auto 0.0 /100WBC (0.0-0.2); Platelet Count 303 X10*3/uL (160-400); Red Blood Count 4.46 X10*6/uL (4.60-5.80); White Blood Count 9.6 X10*3/uL (4.8-10.8)
[2025-09-04 12:03] LABS: HIV Num 1 0.06 S/CO (0.00-0.99)
[2025-09-04 12:15] LABS: Prostate Specific Antigen 1.73 ng/mL (<0.05-4.0)
[2025-09-04 12:58] LABS: CT PCR Urine NOT DETECTED (Not Detect.); NG PCR Urine NOT DETECTED (Not Detect.)
[2025-09-04 15:15] LABS: Alanine Aminotransferase 48 U/L (0-40); Albumin Level 4.7 g/dL (3.5-5.0); Alkaline Phosphatase 65 U/L (39-117); Anion Gap 12 (12-20); Aspartate Amino Transferase 35 U/L (5-37); Blood Urea Nitrogen 24 mg/dL (9-16); Calcium 9.7 mg/dL (8.4-10.2); Carbon Dioxide 25 mmol/L (22-29); Chloride 111 mmol/L (96-108); Cholesterol 150 mg/dL (<200); Estimated Glomerular Filt Rate > 60; Ferritin 612 ng/mL (20-250); HDL Cholesterol 46 mg/dL (>40); Iron 113 mcg/dL (45-160); Percent Iron Saturation 32 % (15-50); Potassium 4.0 mmol/L (3.3-5.1); Sodium 144 mmol/L (135-145); Total Iron Binding Capacity 353 mcg/dL (228-428); Total Protein 7.9 g/dL (6.5-8.0); Triglycerides 106 mg/dL (<150); Unsaturated Iron Binding 240 ug/dL
[2025-09-06 21:13] LABS: HCV Log PCR <1.18 NOT DETECTED Log IU/mL (NOT DETECTED); HepC Viral Load <15 NOT DETECTED IU/mL (NOT DETECTED)
== END 2025-09-04 08:15 | disposition home or self-care (01) ==
LOC: HO.HHCL 08:14
PROVIDERS: PCP Registered Nurse; Visit Provider Registered Nurse
DX: Z00.00 Encounter for general adult medical examination without abnormal findings (principal); Z12.5 Encounter for screening for malignant neoplasm of prostate; Z13.29 Encounter for screening for other suspected endocrine disorder; Z13.1 Encounter for screening for diabetes mellitus; Z13.6 Encounter for screening for cardiovascular disorders; Z11.4 Encounter for screening for human immunodeficiency virus [HIV]; Z20.2 Contact with and (suspected) exposure to infections with a predominantly sexual mode of transmission; D50.9 Iron deficiency anemia, unspecified; R39.9 Unspecified symptoms and signs involving the genitourinary system
CPT/HCPCS: 80053; 80061; 81001; 82728; 83036; 83540; 84153; 84443; 85025; 86592; 87389; 87491; 87522; 87591